=== PATIENT | female | born 1990 | race Caucasian/White ===

== ENCOUNTER 2017-02-19 17:31 | Emergency (ER) | payer SELFPAY ==
[~2017-02-19] VITALS: Ht 160 cm; Wt 70.0 kg
[~2017-02-19 17:31] MED LIST: AMOXICILLIN500 MG; AMOXICILLIN500 MG OR; AUGMENTIN875 MG PO; BIRTH CONTROL PILL; CEPHALEXIN500 MG PO; CIPROFLOXACN500 MG OR; DARVOCET N-100100 - OR; DARVOCET-N100 MG OR; FLOXIN OTIC OT; LORTAB5 PO; NAPROSYN500 MG PO; NO; NO MEDS; NORCO1 TA1 PO; PENICILLN VK500 MG OR; PERCOCET 5/325M1 TAB OR; PRENATA2 OR; PRENATAL1 TAB OR; REGLAN5 MG OR; TRIAMINIC COLD & COU PO; ULTRAM50 M1 PO; ULTRAM50 MG OR; [UNRECOGNIZED DRUG - OTHER]
[2017-02-19] MEDS ORDERED: MOTRIN800 MG PO (18:06)
[2017-02-19 18:21] VITALS: BP 123/80
== END 2017-02-19 18:31 | disposition home or self-care (01) | DRG 605 ==
LOC: ED 17:31
DX: S90.32XA Contusion of left foot, initial encounter (principal); M25.475 Effusion, left foot; W22.8XXA Striking against or struck by other objects, initial encounter; Y93.89 Activity, other specified; Y92.009 Unspecified place in unspecified non-institutional (private) residence as the place of occurrence of the external cause

== ENCOUNTER 2017-10-11 02:04 | Emergency (ER) | payer SELFPAY ==
[~2017-10-11] VITALS: Ht 160 cm; Wt 68.2 kg
[~2017-10-11 02:04] MED LIST changes: +MOTRIN800 MG PO
[2017-10-11] MEDS ORDERED: LORTAB 1010 MG PO (02:33)
[2017-10-11] MEDS ORDERED: AMOX/K CLAV875 M1 PO (02:33)
[2017-10-11] MEDS ORDERED: FLOXIN OTIC0.3 % AU (02:33)
[2017-10-11 02:38] VITALS: BP 111/77
== END 2017-10-11 02:41 | disposition home or self-care (01) | DRG 153 ==
LOC: ED 02:04
DX: H66.93 Otitis media, unspecified, bilateral (principal); F17.210 Nicotine dependence, cigarettes, uncomplicated; J45.909 Unspecified asthma, uncomplicated

== ENCOUNTER 2018-03-13 17:55 | Emergency (ER) | payer OTHER ==
[~2018-03-13] VITALS: Ht 160 cm; Wt 72.7 kg
[~2018-03-13 17:55] MED LIST changes: +AMOX/K CLAV875 M1 PO; +FLOXIN OTIC0.3 % AU; +LORTAB 1010 MG PO
[2018-03-13 18:31] LABS: IMMATURE GRANULOCYTES 0.4 % (0.0-1.0); MEAN CELL VOLUME 95.6 fL CALC (80.0-100.0); MEAN CORPUSCULAR HGB CONC 32.4 g/L CALC (32.0-36.0); NEUT# 2.36 thou/uL (2.00-7.15); RED BLOOD COUNT 3.87 mill/uL (4.20-5.60); RED CELL DISTRI WIDTH 12.9 % (11.5-15.5)
[2018-03-13] MEDS ORDERED: PREDNISONE10 MG PO (19:08)
[2018-03-13] MEDS ORDERED: VENTOLIN HFA IN (19:08)
[2018-03-13 19:25] VITALS: BP 108/60
== END 2018-03-13 19:25 | disposition home or self-care (01) ==
LOC: ED 17:55
PROVIDERS: Family Medicine
DX: B34.9 Viral infection, unspecified (principal); J45.909 Unspecified asthma, uncomplicated; F17.210 Nicotine dependence, cigarettes, uncomplicated; R05 Cough; R09.81 Nasal congestion; R07.89 Other chest pain

== ENCOUNTER 2018-05-24 15:43 | Emergency (ER) | payer SELFPAY ==
[~2018-05-24] VITALS: Ht 160 cm; Wt 68.2 kg
[~2018-05-24 15:43] MED LIST changes: +PREDNISONE10 MG PO; +VENTOLIN HFA IN
[2018-05-24] MEDS ORDERED: AMOXICILLIN500 MG PO (16:09)
[2018-05-24] MEDS ORDERED: ZITHROMAX500 MG PO (16:13)
[2018-05-24 16:14] VITALS: BP 119/78
== END 2018-05-24 16:25 | disposition home or self-care (01) | DRG 153 ==
LOC: ED 15:43
DX: J02.9 Acute pharyngitis, unspecified (principal); J45.909 Unspecified asthma, uncomplicated; F17.210 Nicotine dependence, cigarettes, uncomplicated

== ENCOUNTER 2019-01-14 17:29 | Emergency (ER) | payer OTHER ==
[~2019-01-14] VITALS: Ht 160 cm; Wt 66.0 kg
[~2019-01-14 17:29] MED LIST changes: +AMOXICILLIN500 MG PO; +ZITHROMAX500 MG PO
[2019-01-14 18:06] VITALS: BP 126/83
== END 2019-01-14 19:26 | disposition left against medical advice (07) | DRG 951 ==
LOC: ED 17:29 → LWOBS 19:26
DX: Z91.19 Patient's noncompliance with other medical treatment and regimen (principal)

== ENCOUNTER 2019-01-17 13:30 | Emergency (ER) | payer OTHER ==
[~2019-01-17] VITALS: Ht 160 cm; Wt 69.0 kg
[2019-01-17 14:12] LABS: IMMATURE GRANULOCYTES 0.4 % (0.0-5.0); MEAN CELL VOLUME 92.9 fL CALC (80.0-100.0); MEAN CORPUSCULAR HGB 30.4 pG CALC (26.0-32.0); MEAN CORPUSCULAR HGB CONC 32.7 g/L CALC (32.0-36.0); NEUT# 2.8 thou/uL (2.00-7.15); RED BLOOD COUNT 4.64 mill/uL (4.20-5.60); RED CELL DISTRI WIDTH 13.3 % (11.5-15.5)
[2019-01-17 14:17] LABS: URINE BILIRUBIN - DIPSTICK NEGATIVE (NEGATIVE); URINE COLOR YELLOW; URINE GLUCOSE - DIPSTICK NEGATIVE (NEGATIVE); URINE KETONE TRACE mg/dL (NEGATIVE); URINE LEUK ESTERASE NEGATIVE (NEGATIVE); URINE PROTEIN - DIPSTICK NEGATIVE (NEG-TRACE)
[2019-01-17 14:18] LABS: HEMATOCRIT 43.1 % (37.0-47.0); HEMOGLOBIN 14.1 g/dl (12.0-16.0)
[2019-01-17 14:21] LABS: URINE NITRITE - DIPSTICK POSITIVE (Negative)
[2019-01-17 14:25] LABS: BARBITURATES NEGATIVE (NEGATIVE); COCAINE NEGATIVE (NEGATIVE); METHADONE NEGATIVE (NEGATIVE); OXCYCODONE NEGATIVE (NEGATIVE); TETRAHYDROCANNABIONOL NEGATIVE (NEGATIVE); TRICYLIC ANTIDEPRESSANTS NEGATIVE (NEGATIVE); URINE BACTERIA MODERATE hpf; URINE BLOOD DIPSTICK NEGATIVE (NEGATIVE); URINE EPITHELIAL CELLS RARE EPI/hpf (0-FEW); URINE RBC 0-2 RBC/hpf (0-5)
[2019-01-17 14:27] LABS: ALBUMIN 4.6 g/dL (3.2-5.0); ALKALINE PHOSPHATASE 97 u/l (38-126); BUN 7 mg/dL (7-17); BUN/CREATININE RATIO 10 (12-20 (CALC)); CHLORIDE 103 mmol/l (95-108); CREATININE 0.7 mg/dL (0.5-1.0); GFR > 60 ML/MIN (>=60 (CALC)); GFR FOR AFR.AMER. > 60 ML/MIN (>=60 (CALC)); LIPASE 29 u/l (23-300); POTASSIUM 3.4 mmol/l (3.5-5.1); SGOT/AST 23 u/l (14-36); SODIUM 138 mmol/l (137-146); TOTAL PROTEIN 7.1 g/dL (6.3-8.2)
[2019-01-17 14:28] LABS: ANION GAP 15 (6-22 (CALC)); BILIRUBIN, TOTAL 0.7 mg/dL (0.0-1.4); CARBON DIOXIDE 23 mmol/l (22-30)
[2019-01-17] MEDS ORDERED: ZOFRAN4 MG/TAB PO (15:24)
[2019-01-17] MEDS ORDERED: KEFLEX500 M1 PO (15:24)
[2019-01-17 15:55] VITALS: BP 121/79
== END 2019-01-17 15:55 | disposition home or self-care (01) ==
LOC: ED 13:30
DX: R11.2 Nausea with vomiting, unspecified (principal); N39.0 Urinary tract infection, site not specified; F17.210 Nicotine dependence, cigarettes, uncomplicated; B96.20 Unspecified Escherichia coli [E. coli] as the cause of diseases classified elsewhere

== ENCOUNTER 2019-02-22 11:33 | Emergency (ER) | payer OTHER ==
[~2019-02-22] VITALS: Ht 160 cm; Wt 67.8 kg
[~2019-02-22 11:33] MED LIST changes: +KEFLEX500 M1 PO; +ZOFRAN4 MG/TAB PO
[2019-02-22 12:20] LABS: URINE BILIRUBIN - DIPSTICK NEGATIVE (NEGATIVE); URINE BLOOD DIPSTICK NEGATIVE (NEGATIVE); URINE COLOR YELLOW; URINE GLUCOSE - DIPSTICK NEGATIVE (NEGATIVE); URINE KETONE NEGATIVE (NEGATIVE); URINE LEUK ESTERASE NEGATIVE (NEGATIVE); URINE PH 6.5 (4.5-8.0); URINE PROTEIN - DIPSTICK NEGATIVE (NEG-TRACE); URINE SPECIFIC GRAVITY 1.015; URINE UROBILINOGEN - DIPSTICK 0.2 E.U./dL (0.2)
[2019-02-22 12:21] LABS: URINE NITRITE - DIPSTICK POSITIVE (Negative)
[2019-02-22 12:22] LABS: URINE BACTERIA FEW hpf
[2019-02-22] MEDS ORDERED: ZITHROMAX250 MG PO (14:22)
[2019-02-22] MEDS ORDERED: CORTISPORIN OTI10 M2 AU (14:22)
[2019-02-22] MEDS ORDERED: TORADOL PO (14:22)
[2019-02-22 14:35] VITALS: BP 121/77
== END 2019-02-22 14:35 | disposition home or self-care (01) ==
LOC: ED 11:33
PROVIDERS: Emergency Medicine
DX: H66.93 Otitis media, unspecified, bilateral (principal); H60.93 Unspecified otitis externa, bilateral; B96.20 Unspecified Escherichia coli [E. coli] as the cause of diseases classified elsewhere; H92.03 Otalgia, bilateral; R05 Cough; R09.81 Nasal congestion; J06.9 Acute upper respiratory infection, unspecified

== ENCOUNTER 2019-03-14 13:24 | Emergency (ER) | payer OTHER ==
[~2019-03-14] VITALS: Ht 160 cm; Wt 70.0 kg
[~2019-03-14 13:24] MED LIST changes: +CORTISPORIN OTI10 M2 AU; +TORADOL PO; +ZITHROMAX250 MG PO
[2019-03-14 14:22] VITALS: BP 126/73
== END 2019-03-14 14:28 | disposition home or self-care (01) ==
LOC: ED 13:24
DX: H61.22 Impacted cerumen, left ear (principal); R09.81 Nasal congestion; F17.210 Nicotine dependence, cigarettes, uncomplicated

== ENCOUNTER 2019-03-23 00:16 | Emergency (ER) | payer OTHER ==
[~2019-03-23] VITALS: Ht 160 cm; Wt 70.0 kg
[2019-03-23] MEDS ORDERED: IBUPROFEN600 MG PO (00:52)
[2019-03-23 00:58] VITALS: BP 113/76
== END 2019-03-23 01:18 | disposition home or self-care (01) ==
LOC: ED 00:16
DX: M75.41 Impingement syndrome of right shoulder (principal); M25.511 Pain in right shoulder

== ENCOUNTER 2019-06-14 09:49 | Emergency (ER) | payer OTHER ==
[~2019-06-14] VITALS: Ht 160 cm; Wt 68.0 kg
[~2019-06-14 09:49] MED LIST changes: +IBUPROFEN600 MG PO
[2019-06-14 11:01] LABS: HEMATOCRIT 43.5 % (37.0-47.0); HEMOGLOBIN 14.3 g/dl (12.0-16.0); IMMATURE GRANULOCYTES 0.3 % (0.0-5.0); MEAN CELL VOLUME 94.8 fL CALC (80.0-100.0); MEAN CORPUSCULAR HGB 31.2 pG CALC (26.0-32.0); MEAN CORPUSCULAR HGB CONC 32.9 g/L CALC (32.0-36.0); NEUT# 5.81 thou/uL (2.00-7.15); RED BLOOD COUNT 4.59 mill/uL (4.20-5.60); RED CELL DISTRI WIDTH 12.8 % (11.5-15.5)
[2019-06-14 11:01] LABS: URINE BILIRUBIN - DIPSTICK NEGATIVE (NEGATIVE); URINE BLOOD DIPSTICK NEGATIVE (NEGATIVE); URINE COLOR YELLOW; URINE GLUCOSE - DIPSTICK NEGATIVE (NEGATIVE); URINE KETONE NEGATIVE (NEGATIVE); URINE LEUK ESTERASE NEGATIVE (NEGATIVE); URINE NITRITE - DIPSTICK NEGATIVE (Negative); URINE PROTEIN - DIPSTICK NEGATIVE (NEG-TRACE); URINE UROBILINOGEN - DIPSTICK 0.2 E.U./dL (0.2)
[2019-06-14 11:22] LABS: ALBUMIN 4.3 g/dL (3.2-5.0); ALKALINE PHOSPHATASE 86 u/l (38-126); AMYLASE 51 u/l (30-110); BILIRUBIN, TOTAL 0.5 mg/dL (0.0-1.4); BUN 7 mg/dL (7-17); BUN/CREATININE RATIO 9 (12-20 (CALC)); CHLORIDE 99 mmol/l (95-108); CREATININE 0.8 mg/dL (0.5-1.0); GFR > 60 ML/MIN (>=60 (CALC)); GFR FOR AFR.AMER. > 60 ML/MIN (>=60 (CALC)); LIPASE 36 u/l (23-300); SGOT/AST 25 u/l (14-36); SODIUM 138 mmol/l (137-146); TOTAL PROTEIN 7.3 g/dL (6.3-8.2)
[2019-06-14 11:29] LABS: ANION GAP 15 (6-22 (CALC)); CARBON DIOXIDE 28 mmol/l (22-30); POTASSIUM 4.3 mmol/l (3.5-5.1)
[2019-06-14 11:39] LABS: BETA-HCG, QUANT(RESULT NUMBER) <2 mIU/mL
[2019-06-14] MEDS ORDERED: ONDANSETRON4 MG PO (13:57)
[2019-06-14] MEDS ORDERED: ULTRAM50 M1 PO (13:57)
[2019-06-14 14:07] VITALS: BP 96/61
== END 2019-06-14 14:25 | disposition home or self-care (01) ==
LOC: ED 09:49
PROVIDERS: Emergency Medicine
DX: N83.202 Unspecified ovarian cyst, left side (principal); N83.201 Unspecified ovarian cyst, right side; K80.20 Calculus of gallbladder without cholecystitis without obstruction; F17.210 Nicotine dependence, cigarettes, uncomplicated
CPT/HCPCS: Q9967

== ENCOUNTER 2019-07-12 21:17 | Emergency (ER) | payer OTHER ==
[~2019-07-12] VITALS: Ht 160 cm; Wt 69.0 kg
[~2019-07-12 21:17] MED LIST changes: +ONDANSETRON4 MG PO
[2019-07-12 22:24] LABS: HEMOGLOBIN 13.7 g/dl (12.0-16.0); IMMATURE GRANULOCYTES 0.4 % (0.0-5.0); MEAN CELL VOLUME 94.6 fL CALC (80.0-100.0); MEAN CORPUSCULAR HGB 30.9 pG CALC (26.0-32.0); MEAN CORPUSCULAR HGB CONC 32.6 g/L CALC (32.0-36.0); NEUT# 6.54 thou/uL (2.00-7.15); RED BLOOD COUNT 4.44 mill/uL (4.20-5.60); RED CELL DISTRI WIDTH 12.5 % (11.5-15.5)
[2019-07-12 22:25] LABS: URINE BILIRUBIN - DIPSTICK NEGATIVE (NEGATIVE); URINE BLOOD DIPSTICK NEGATIVE (NEGATIVE); URINE COLOR YELLOW; URINE GLUCOSE - DIPSTICK NEGATIVE (NEGATIVE); URINE KETONE NEGATIVE (NEGATIVE); URINE LEUK ESTERASE NEGATIVE (NEGATIVE); URINE NITRITE - DIPSTICK NEGATIVE (Negative); URINE PROTEIN - DIPSTICK NEGATIVE (NEG-TRACE); URINE SPECIFIC GRAVITY <=1.005; URINE UROBILINOGEN - DIPSTICK 0.2 E.U./dL (0.2)
[2019-07-12 22:41] LABS: ALBUMIN 4.1 g/dL (3.2-5.0); ALKALINE PHOSPHATASE 85 u/l (38-126); ANION GAP 13 (6-22 (CALC)); BILIRUBIN, TOTAL 0.4 mg/dL (0.0-1.4); BUN 4 mg/dL (7-17); BUN/CREATININE RATIO 6 (12-20 (CALC)); CARBON DIOXIDE 29 mmol/l (22-30); CHLORIDE 99 mmol/l (95-108); CREATININE 0.8 mg/dL (0.5-1.0); GFR > 60 ML/MIN (>=60 (CALC)); GFR FOR AFR.AMER. > 60 ML/MIN (>=60 (CALC)); POTASSIUM 3.5 mmol/l (3.5-5.1); SGOT/AST 17 u/l (14-36); SODIUM 137 mmol/l (137-146); TOTAL PROTEIN 6.9 g/dL (6.3-8.2)
[2019-07-12] MEDS ORDERED: NAPROSYN250 MG PO (23:03)
[2019-07-12 23:35] VITALS: BP 122/78
== END 2019-07-12 23:00 | disposition home or self-care (01) ==
LOC: ED 21:17
DX: H60.91 Unspecified otitis externa, right ear (principal); J06.9 Acute upper respiratory infection, unspecified; J02.9 Acute pharyngitis, unspecified; R09.81 Nasal congestion; R05 Cough; H92.01 Otalgia, right ear; J45.909 Unspecified asthma, uncomplicated

== ENCOUNTER 2019-07-14 08:35 | Emergency (ER) | payer OTHER ==
[~2019-07-14] VITALS: Ht 160 cm; Wt 68.2 kg
[~2019-07-14 08:35] MED LIST changes: +NAPROSYN250 MG PO
[2019-07-14] MEDS ORDERED: ZPAK PO (09:01)
[2019-07-14] MEDS ORDERED: NEOMYCIN/POLYMY1 SOL AD (09:01)
[2019-07-14 09:09] VITALS: BP 111/61
== END 2019-07-14 09:09 | disposition home or self-care (01) ==
LOC: ED 08:35
DX: H66.91 Otitis media, unspecified, right ear (principal); J06.9 Acute upper respiratory infection, unspecified

== ENCOUNTER 2019-09-25 | Emergency (ER) | payer OTHER ==
[~2019-09-25] MED LIST changes: +NEOMYCIN/POLYMY1 SOL AD; +ZPAK PO
[2019-09-25] MEDS ORDERED: FLEXERIL5 MG PO (23:31)
[2019-09-25] MEDS ORDERED: TORADOL PO (23:31)
== END 2019-09-25 23:55 | disposition home or self-care (01) ==
DX: S39.012A Strain of muscle, fascia and tendon of lower back, initial encounter (principal); F17.210 Nicotine dependence, cigarettes, uncomplicated; X58.XXXA Exposure to other specified factors, initial encounter

== ENCOUNTER 2019-10-17 | Emergency (ER) | payer OTHER ==
[~2019-10-17] MED LIST changes: +FLEXERIL5 MG PO
[2019-10-17 09:57] LABS: HEMOGLOBIN 14.4 g/dl (12.0-16.0); IMMATURE GRANULOCYTES 0.4 % (0.0-5.0); MEAN CORPUSCULAR HGB 30.8 pG CALC (26.0-32.0); MEAN CORPUSCULAR HGB CONC 32.7 g/L CALC (32.0-36.0); NEUT# 6.99 thou/uL (2.00-7.15); RED BLOOD COUNT 4.68 mill/uL (4.20-5.60); RED CELL DISTRI WIDTH 12.9 % (11.5-15.5)
[2019-10-17 10:13] LABS: URINE BILIRUBIN - DIPSTICK NEGATIVE (NEGATIVE); URINE BLOOD DIPSTICK NEGATIVE (NEGATIVE); URINE COLOR YELLOW; URINE GLUCOSE - DIPSTICK NEGATIVE (NEGATIVE); URINE KETONE NEGATIVE (NEGATIVE); URINE LEUK ESTERASE NEGATIVE (NEGATIVE); URINE NITRITE - DIPSTICK NEGATIVE (Negative); URINE PH 5.5 (4.5-8.0); URINE PROTEIN - DIPSTICK NEGATIVE (NEG-TRACE); URINE SPECIFIC GRAVITY 1.025; URINE UROBILINOGEN - DIPSTICK 0.2 E.U./dL (0.2)
[2019-10-17 10:14] LABS: ALBUMIN 4.1 g/dL (3.2-5.0); ALKALINE PHOSPHATASE 90 u/l (38-126); ANION GAP 15 (6-22 (CALC)); BILIRUBIN, TOTAL 0.4 mg/dL (0.0-1.4); BUN 9 mg/dL (7-17); BUN/CREATININE RATIO 14 (12-20 (CALC)); CARBON DIOXIDE 23 mmol/l (22-30); CHLORIDE 104 mmol/l (95-108); CREATININE 0.6 mg/dL (0.5-1.0); GFR > 60 ML/MIN (>=60 (CALC)); GFR FOR AFR.AMER. > 60 ML/MIN (>=60 (CALC)); POTASSIUM 4.3 mmol/l (3.5-5.1); SGOT/AST 21 u/l (14-36); SODIUM 137 mmol/l (137-146); TOTAL PROTEIN 7.1 g/dL (6.3-8.2)
[2019-10-17] MEDS ORDERED: ULTRAM50 M1 PO (13:10)
== END 2019-10-17 13:20 | disposition home or self-care (01) ==
PROVIDERS: Emergency Medicine
DX: N83.292 Other ovarian cyst, left side (principal); F17.210 Nicotine dependence, cigarettes, uncomplicated

== ENCOUNTER 2019-11-13 | Emergency (ER) | payer OTHER ==
[2019-11-13 23:49] LABS: URINE BILIRUBIN - DIPSTICK NEGATIVE (NEGATIVE); URINE BLOOD DIPSTICK NEGATIVE (NEGATIVE); URINE COLOR YELLOW; URINE GLUCOSE - DIPSTICK NEGATIVE (NEGATIVE); URINE KETONE NEGATIVE (NEGATIVE); URINE LEUK ESTERASE NEGATIVE (NEGATIVE); URINE NITRITE - DIPSTICK NEGATIVE (Negative); URINE PH 6.5 (4.5-8.0); URINE PROTEIN - DIPSTICK NEGATIVE (NEG-TRACE); URINE UROBILINOGEN - DIPSTICK 0.2 E.U./dL (0.2)
[2019-11-14] MEDS ORDERED: FLOXIN OTIC0.3 % AU (00:15)
[2019-11-14] MEDS ORDERED: AMOX/K CLAV875 M1 PO (00:15)
== END 2019-11-14 00:46 | disposition home or self-care (01) ==
PROVIDERS: Emergency Medicine
DX: H66.93 Otitis media, unspecified, bilateral (principal); F17.210 Nicotine dependence, cigarettes, uncomplicated

== ENCOUNTER 2019-11-20 | Emergency (ER) | payer OTHER ==
[2019-11-20 20:32] LABS: URINE BILIRUBIN - DIPSTICK NEGATIVE (NEGATIVE); URINE BLOOD DIPSTICK NEGATIVE (NEGATIVE); URINE COLOR YELLOW; URINE GLUCOSE - DIPSTICK NEGATIVE (NEGATIVE); URINE KETONE NEGATIVE (NEGATIVE); URINE LEUK ESTERASE NEGATIVE (NEGATIVE); URINE NITRITE - DIPSTICK NEGATIVE (Negative); URINE PROTEIN - DIPSTICK NEGATIVE (NEG-TRACE); URINE SPECIFIC GRAVITY <=1.005; URINE UROBILINOGEN - DIPSTICK 0.2 E.U./dL (0.2)
[2019-11-20 20:32] LABS: HEMATOCRIT 44.7 % (37.0-47.0); HEMOGLOBIN 14.3 g/dl (12.0-16.0); IMMATURE GRANULOCYTES 0.2 % (0.0-5.0); MEAN CELL VOLUME 94.9 fL CALC (80.0-100.0); MEAN CORPUSCULAR HGB 30.4 pG CALC (26.0-32.0); NEUT# 4.05 thou/uL (2.00-7.15); RED BLOOD COUNT 4.71 mill/uL (4.20-5.60); RED CELL DISTRI WIDTH 12.8 % (11.5-15.5)
[2019-11-20 21:03] LABS: ALBUMIN 4.4 g/dL (3.2-5.0); ALKALINE PHOSPHATASE 90 u/l (38-126); AMYLASE 49 u/l (30-110); ANION GAP 12 (6-22 (CALC)); BILIRUBIN, TOTAL 0.4 mg/dL (0.0-1.4); BUN 9 mg/dL (7-17); BUN/CREATININE RATIO 12 (12-20 (CALC)); CARBON DIOXIDE 28 mmol/l (22-30); CHLORIDE 101 mmol/l (95-108); CREATININE 0.7 mg/dL (0.5-1.0); GFR > 60 ML/MIN (>=60 (CALC)); GFR FOR AFR.AMER. > 60 ML/MIN (>=60 (CALC)); LIPASE 44 u/l (23-300); SGOT/AST 22 u/l (14-36); SODIUM 137 mmol/l (137-146); TOTAL PROTEIN 7.3 g/dL (6.3-8.2)
[2019-11-20] MEDS ORDERED: ONDANSETRON4 MG PO ×2 (22:24)
[2019-11-20] MEDS ORDERED: NAPROSYN250 MG PO ×2 (22:24)
== END 2019-11-20 22:33 | disposition home or self-care (01) ==
PROVIDERS: Emergency Medicine
DX: N83.202 Unspecified ovarian cyst, left side (principal); N83.201 Unspecified ovarian cyst, right side; F17.210 Nicotine dependence, cigarettes, uncomplicated; R10.32 Left lower quadrant pain

== ENCOUNTER 2020-05-21 19:11 | Emergency (ER) | payer OTHER ==
[~2020-05-21] VITALS: Ht 160 cm; Wt 70.5 kg
[2020-05-21 20:05] LABS: HCG SERUM/URINE (NEG/POS) NEGATIVE (NEGATIVE)
[2020-05-21] MEDS ORDERED: AMOXICILLIN875 MG PO (20:06)
[2020-05-21 20:26] VITALS: BP 135/71
== END 2020-05-21 20:26 | disposition home or self-care (01) ==
LOC: ED 19:11
DX: H66.91 Otitis media, unspecified, right ear (principal); J06.9 Acute upper respiratory infection, unspecified; J45.909 Unspecified asthma, uncomplicated; F17.210 Nicotine dependence, cigarettes, uncomplicated; Z20.828 Contact with and (suspected) exposure to other viral communicable diseases

== ENCOUNTER 2020-12-15 16:16 | Emergency (ER) | payer OTHER ==
[~2020-12-15 16:16] MED LIST changes: +AMOXICILLIN875 MG PO
[2020-12-15 17:00] LABS: HEMOGLOBIN 12.2 g/dl (12.0-16.0); MEAN CELL VOLUME 97.3 fL CALC (80.0-100.0); MEAN CORPUSCULAR HGB CONC 33.9 g/dL CAL (32.0-36.0); NEUT# 8.84 thou/uL (2.00-7.15); RED BLOOD COUNT 3.7 mill/uL (4.20-5.60); RED CELL DISTRI WIDTH 13.9 % (11.5-15.5)
[2020-12-15 17:20] LABS: ANION GAP 10 (6-22 (CALC)); CARBON DIOXIDE 23 mmol/l (22-30); CHLORIDE 102 mmol/l (95-108); CREATININE 0.4 mg/dL (0.5-1.0); GFR > 60 ML/MIN (>=60 (CALC)); GFR FOR AFR.AMER. > 60 ML/MIN (>=60 (CALC)); POTASSIUM 4.2 mmol/l (3.5-5.1); SGOT/AST 25 u/l (14-36); SODIUM 131 mmol/l (137-146); TOTAL PROTEIN 6.5 g/dL (6.3-8.2)
[2020-12-15 17:21] LABS: ALBUMIN 3.4 g/dL (3.2-5.0); ALKALINE PHOSPHATASE 166 u/l (38-126); BILIRUBIN, TOTAL 0.7 mg/dL (0.0-1.4); BUN 2 mg/dL (7-17); BUN/CREATININE RATIO 5 (12-20 (CALC))
[2020-12-15 17:44] LABS: URINE BILIRUBIN - DIPSTICK NEGATIVE (NEGATIVE); URINE BLOOD DIPSTICK NEGATIVE (NEGATIVE); URINE COLOR YELLOW; URINE GLUCOSE - DIPSTICK NEGATIVE (NEGATIVE); URINE KETONE NEGATIVE (NEGATIVE); URINE LEUK ESTERASE NEGATIVE (NEGATIVE); URINE PH 6.5 (4.5-8.0); URINE PROTEIN - DIPSTICK NEGATIVE (NEG-TRACE); URINE UROBILINOGEN - DIPSTICK 0.2 E.U./dL (0.2)
[2020-12-15 17:45] LABS: URINE NITRITE - DIPSTICK NEGATIVE (Negative)
[2020-12-15 18:02] LABS: BETA-HCG, QUANT(RESULT NUMBER) 56651 mIU/mL
[2020-12-15 19:05] VITALS: BP 138/82
== END 2020-12-15 19:05 | disposition home or self-care (01) ==
LOC: ED 16:16
PROVIDERS: Physician Assistant Surgical
DX: O26.893 Other specified pregnancy related conditions, third trimester (principal); R10.9 Unspecified abdominal pain; O99.513 Diseases of the respiratory system complicating pregnancy, third trimester; J45.909 Unspecified asthma, uncomplicated; O24.419 Gestational diabetes mellitus in pregnancy, unspecified control; O34.83 Maternal care for other abnormalities of pelvic organs, third trimester; N83.209 Unspecified ovarian cyst, unspecified side; O99.333 Smoking (tobacco) complicating pregnancy, third trimester; F17.210 Nicotine dependence, cigarettes, uncomplicated; W20.8XXA Other cause of strike by thrown, projected or falling object, initial encounter; Y93.89 Activity, other specified; Y92.009 Unspecified place in unspecified non-institutional (private) residence as the place of occurrence of the external cause; Z3A.30 30 weeks gestation of pregnancy

== ENCOUNTER 2022-03-08 06:29 | Emergency (ER) | payer OTHER ==
[~2022-03-08] VITALS: Ht 160 cm; Wt 73.0 kg
[2022-03-08 06:44] VITALS: BP 120/77
[2022-03-08] MEDS ORDERED: AMOX/K CLAV875 M1 PO (06:52)
[2022-03-08] MEDS ORDERED: CORTISPORIN OTI10 ML AD (06:52)
[2022-03-08 07:00] VITALS: BP 100/62
[2022-03-08 07:15] VITALS: BP 112/75
[2022-03-08 07:16] VITALS: BP 112/75
== END 2022-03-08 07:23 | disposition home or self-care (01) ==
LOC: ED 06:29
DX: H66.91 Otitis media, unspecified, right ear (principal); H60.91 Unspecified otitis externa, right ear; J45.909 Unspecified asthma, uncomplicated; F17.200 Nicotine dependence, unspecified, uncomplicated

== ENCOUNTER 2022-03-25 17:32 | Emergency (ER) | payer OTHER ==
[2022-03-25] VITALS (7 sets, daily range): BP systolic 102–116; BP diastolic 65–84
[~2022-03-25] VITALS: Ht 160 cm; Wt 72.7 kg
[~2022-03-25 17:32] MED LIST changes: +CORTISPORIN OTI10 ML AD
[2022-03-25] MEDS ORDERED: TRAMADOL HCL50 MG PO (20:14)
[2022-03-25] MEDS ORDERED: NAPROXEN500 MG PO (20:14)
== END 2022-03-25 20:34 | disposition home or self-care (01) ==
LOC: ED 17:32
DX: M25.562 Pain in left knee (principal); J45.909 Unspecified asthma, uncomplicated; F17.210 Nicotine dependence, cigarettes, uncomplicated
CPT/HCPCS: L1830

== ENCOUNTER 2022-07-29 21:54 | Emergency (ER) | payer OTHER ==
[~2022-07-29] VITALS: Ht 160 cm; Wt 79.0 kg
[~2022-07-29 21:54] MED LIST changes: +NAPROXEN500 MG PO; +TRAMADOL HCL50 MG PO
[2022-07-29 22:10] VITALS: BP 118/75
[2022-07-29 23:00] VITALS: BP 100/59
[2022-07-29 23:40] VITALS: BP 100/59
== END 2022-07-29 23:45 | disposition home or self-care (01) ==
LOC: ED 21:54
DX: B34.9 Viral infection, unspecified (principal); J45.909 Unspecified asthma, uncomplicated; F17.200 Nicotine dependence, unspecified, uncomplicated; Z20.822 Contact with and (suspected) exposure to COVID-19

== ENCOUNTER 2022-09-13 16:19 | Emergency (ER) | payer OTHER ==
[~2022-09-13] VITALS: Ht 160 cm; Wt 72.0 kg
[2022-09-13 20:00] VITALS: BP 125/86
== END 2022-09-13 19:26 | disposition home or self-care (01) ==
LOC: ED 16:19
DX: J06.9 Acute upper respiratory infection, unspecified (principal); J45.909 Unspecified asthma, uncomplicated; F17.200 Nicotine dependence, unspecified, uncomplicated; Z20.822 Contact with and (suspected) exposure to COVID-19

== ENCOUNTER 2022-11-20 02:12 | Emergency (ER) | payer OTHER ==
[~2022-11-20] VITALS: Ht 160 cm; Wt 80.0 kg
[2022-11-20 02:22] VITALS: BP 123/76
[2022-11-20 02:30] VITALS: BP 118/80
[2022-11-20 02:45] VITALS: BP 117/79
[2022-11-20 03:00] VITALS: BP 108/88
[2022-11-20 03:15] VITALS: BP 108/88
== END 2022-11-20 03:17 | disposition home or self-care (01) ==
LOC: ED 02:12
DX: K08.89 Other specified disorders of teeth and supporting structures (principal); J45.909 Unspecified asthma, uncomplicated; F17.200 Nicotine dependence, unspecified, uncomplicated

== ENCOUNTER 2023-03-21 04:38 | Emergency (ER) | payer SELFPAY ==
[~2023-03-21] VITALS: Ht 160 cm; Wt 76.0 kg
[2023-03-21] MEDS ORDERED: TRAMADOL HCL50 MG PO (05:02)
[2023-03-21] MEDS ORDERED: AMOXICILLIN500 MG PO (05:02)
[2023-03-21] MEDS ORDERED: NAPROXEN375 MG PO (05:02)
[2023-03-21 05:22] VITALS: BP 134/76
== END 2023-03-21 05:39 | disposition home or self-care (01) | DRG 159 ==
LOC: ED 04:38
DX: K04.7 Periapical abscess without sinus (principal); K02.9 Dental caries, unspecified; J45.909 Unspecified asthma, uncomplicated; F17.210 Nicotine dependence, cigarettes, uncomplicated

== ENCOUNTER 2023-05-21 08:39 | Emergency (ER) | payer SELFPAY ==
[~2023-05-21] VITALS: Ht 160 cm; Wt 75.6 kg
[~2023-05-21 08:39] MED LIST changes: +NAPROXEN375 MG PO
[2023-05-21] MEDS ORDERED: FLONASE AL50 MCG/ACT (09:03)
[2023-05-21] MEDS ORDERED: ALLEGRA-D 2424 HOUR PO (09:03)
[2023-05-21 09:10] VITALS: BP 106/71
[2023-05-21 09:12] VITALS: BP 106/71
== END 2023-05-21 09:15 | disposition home or self-care (01) | DRG 156 ==
LOC: ED 08:39
DX: H73.893 Other specified disorders of tympanic membrane, bilateral (principal); Z71.6 Tobacco abuse counseling

== ENCOUNTER 2024-06-03 12:41 | Emergency (ER) | payer SELFPAY ==
[~2024-06-03] VITALS: Ht 160 cm; Wt 74.0 kg
[2024-06-03] VITALS (10 sets, daily range): BP systolic 96–118; BP diastolic 57–82
[~2024-06-03 12:41] MED LIST changes: +ALLEGRA-D 2424 HOUR PO; +FLONASE AL50 MCG/ACT
[2024-06-03] MEDS ORDERED: KETOROLAC TROMETHAMINE 30 MG/ML SDV IM ONE (13:05)
[2024-06-03 14:46] LABS: BASO% 0.6 % (0-3); EOS% 1.5 % (0-8); HEMOGLOBIN 13.6 g/dl (12.0-16.0); IMMATURE GRANULOCYTES 0.1 % (0.0-5.0); LYMPH% 30.1 % (15-41); MEAN CELL VOLUME 98.4 fL CALC (80.0-100.0); MEAN CORPUSCULAR HGB 31.9 pG CALC (26.0-32.0); MEAN CORPUSCULAR HGB CONC 32.4 g/dL CAL (32.0-36.0); MONO% 7.9 % (2-13); NEUT# 5.02 thou/uL (2.00-7.15); NEUT% 59.8 % (42-76); RED BLOOD COUNT 4.27 mill/uL (4.20-5.60)
[2024-06-03 15:08] LABS: BILIRUBIN, TOTAL 0.5 mg/dL (0.02-1.3); C-REACTIVE PROTEIN 1.1 mg/dL (0-0.9); CREATININE 0.7 mg/dL (0.5-1.0); POTASSIUM 4.1 mmol/l (3.5-5.1); TOTAL PROTEIN 6.6 g/dL (6.3-8.2)
[2024-06-03] MEDS ORDERED: MEDDOSEPAK PO (15:25)
== END 2024-06-03 15:38 | disposition home or self-care (01) | DRG 556 ==
LOC: ED 12:41
PROVIDERS: Nurse Practitioner
DX: M25.561 Pain in right knee (principal); M25.461 Effusion, right knee; J45.909 Unspecified asthma, uncomplicated; F17.290 Nicotine dependence, other tobacco product, uncomplicated